=== PATIENT | female | born 1950 | race Caucasian/White ===

== ENCOUNTER → 2022-04-22 09:50 | Outpatient (CLI) | payer MEDICARE, SELFPAY ==
[2022-04-22 10:52] LABS: BUN Creatinine Ratio 16.9 (6-22); Blood Urea Nitrogen 13 mg/dL (7-17); Estimated Glomerular Filt Rate > 60 mL/min (>60)
== END ==
PROVIDERS: PCP Registered Nurse Diabetes Educator; Referring Provider Obstetrics & Gynecology; Visit Provider Obstetrics & Gynecology
DX: C54.1 Malignant neoplasm of endometrium (principal)
CPT/HCPCS: 36415; 82565; 84520

== ENCOUNTER → 2022-04-22 10:00 | Outpatient (CLI) | payer MEDICARE, SELFPAY ==
--- NOTE | 2022-04-22 11:52 | DI.CT.S_ITS ---
PROCEDURE: CT CHEST ABD PEL W CON INDICATIONS: Malignant neoplasm of endometrium TECHNIQUE: After the administration of oral and intravenous contrast, axial sections acquired from the supraclavicular neck to the pubic symphysis. Coronal and sagittal reformats were performed. For radiation dose reduction, the following was used: automated exposure control, adjustment of mA and/or kV according to patient size. COMPARISON: None. FINDINGS: Image quality: Excellent. Images are denoted as (series #/image #). CHEST: Lower Neck: No enlarged lymph nodes. Thyroid: Unremarkable CT appearance. Axillae: No enlarged lymph nodes. Lungs and Airways: No consolidation or suspicious nodules. Pleura: No pneumothorax or pleural effusions. Small left Bochdalek hernia. Heart: No pericardial effusion. Thoracic Vessels: The aorta and pulmonary arteries demonstrate normal size. Mediastinum and Gracie: No enlarged lymph nodes. Esophagus: No wall thickening. No hiatal hernia. ABDOMEN: Liver: Unremarkable. Gallbladder: Unremarkable. Biliary ducts: Unremarkable. Pancreas: Unremarkable. Spleen: Unremarkable. Adrenal Glands: Unremarkable. Kidneys and Ureters: No hydroureteronephrosis. Possible punctate 1-2 millimeter stone in the distal right ureter versus artifact from an adjacent phlebolith (2/105-106). 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 Stomach and Bowel: No evidence of mechanical small bowel obstruction. Moderate predominantly sigmoid colonic diverticulosis without evidence of acute diverticulitis. Peritoneum: No abnormal intraperitoneal fluid. No free air. Ventral Wall: Prior surgical changes. Abdominal Nodes: No retroperitoneal or mesenteric adenopathy by size criteria. Vessels: Aorta and inferior vena cava are normal in size. PELVIS: Pelvic Organs: The uterus is not visualized and is presumed surgically absent.. Bladder: Unremarkable. Pelvic Nodes: Mildly enlarged left external iliac chain medial group lymph node measures 1.3 centimeters (). Additional right external iliac chain medial group lymph node measures 0.7 centimeters, not enlarged by size criteria but attention on follow-up is recommended. Bones: Multilevel degenerative change of the visualized spine. IMPRESSION: 1. Left external iliac chain lymphadenopathy is concerning for metastatic disease but is nonspecific. A prominent but not enlarged by size criteria right external iliac chain lymph node is also present, also indeterminate. Attention on follow-up is recommended. 2. No evidence of thoracic metastatic disease identified. 3. Possible tiny/punctate right distal ureter stone versus artifact from adjacent phlebolith. No hydroureteronephrosis demonstrated bilaterally. Dictated by: Benjamin Ramirez M.D. on 04/22/2022 at 15:23 Approved by: Benjamin Ramirez M.D. on 04/22/2022 at 15:52
== END ==
PROVIDERS: PCP Registered Nurse Diabetes Educator; Referring Provider Obstetrics & Gynecology; Visit Provider Obstetrics & Gynecology
DX: C54.1 Malignant neoplasm of endometrium (principal); R59.0 Localized enlarged lymph nodes
CPT/HCPCS: 36415; 71260; 74177; 82565; 84520